=== PATIENT | male | born 1975 | race Caucasian/White ===

== ENCOUNTER 2018-09-28 07:00 | Emergency (ER) | END 2018-09-28 12:00 | disposition home or self-care (01) ==

== ENCOUNTER 2019-03-01 19:37 | Inpatient (IN) | payer MEDICARE, OTHER ==
[~2019-03-01] VITALS: Ht 162.6 cm; Wt 65.0 kg
[~2019-03-01 19:37] MED LIST: CEPH-443 PO; GABA400C14 PO; OMEP20CA16 PO; RIVA10TA PO; SULF1TAB31 PO
[2019-03-01] MEDS ORDERED: SODIUM CHLORIDE 0.9% 1L BAG IV* STA (19:45)
[2019-03-01] MEDS ORDERED: CEFEPIME 2GM/50 ML (PMX) 50 ML IVPB STA (19:45)
[2019-03-01] MEDS ORDERED: VANCOMYCIN 1 GM (PMX) 250 ML IVPB ONE (20:00)
[2019-03-01] MEDS ORDERED: LORAZEPAM 2 MG INJ IV ONE (20:00)
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
[2019-03-01] MEDS ORDERED: ONDANSETRON 4 MG INJ IV PRN (22:30)
[2019-03-01] MEDS ORDERED: ACETAMINOPHEN 325 MG TAB PO PRN ×2 (22:30→23:30)
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
[2019-03-01] MEDS ORDERED: NACL 0.9% 3 ML SYG IV SCH (23:30)
[2019-03-01] MEDS ORDERED: HYDROCODONE/APAP (5/325) TAB PO PRN ×2 (23:30)
[2019-03-01] MEDS: GABAPENTIN 400 MG CAP PO SCH (23:30)
[2019-03-02] MEDS ORDERED: NON-FORMULARY/PATIENT OWN MED (Omeprazole* 20 MG) PO SCH (07:00)
[2019-03-02] MEDS: PANTOPRAZOLE (EC) 40 MG TAB PO SCH (07:00)
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
[2019-03-02] MEDS: GABAPENTIN 400 MG CAP PO SCH ×2 (09:00→20:29)
[2019-03-02] MEDS ORDERED: POTASSIUM CHLORIDE (SR) 20 MEQ TAB PO STA (09:38)
[2019-03-02] MEDS ORDERED: VANCOMYCIN IV PER PHARMACY XX SCH (10:00)
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
[2019-03-02] MEDS: HYDROmorphONE 2 MG/ML SYG IV PRN ×2 (13:14→20:29)
[2019-03-02] MEDS: DIPHENHYDRAMINE 50 MG INJ IV PRN ×2 (13:14→22:09)
[2019-03-02] MEDS: RIVAROXABAN 10 MG TABLET PO SCH (13:14)
[2019-03-02] MEDS: PIPER-TAZO 3.375 GM IV (PMX) 100 ML IVPB SCH ×2 (14:04→20:28)
[2019-03-02 14:30] VITALS: Ht 162.6 cm; Wt 65.0 kg
[2019-03-02] MEDS ORDERED: LORAZEPAM 2 MG INJ IV ONE (15:30)
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
[2019-03-02 20:24] VITALS: BP 105/57; PULSE 100; RESP 20
[2019-03-02] MEDS: VANCOMYCIN 750 MG (PMX) 250 ML IVPB SCH (21:58)
[2019-03-03] MEDS ORDERED: LORAZEPAM 2 MG INJ IV ONE
[2019-03-03] MEDS ORDERED: HALOPERIDOL 5 MG INJ IM ONE
[2019-03-03] MEDS: VANCOMYCIN 750 MG (PMX) 250 ML IVPB SCH ×3 (00:05→15:50)
[2019-03-03] MEDS: PIPER-TAZO 3.375 GM IV (PMX) 100 ML IVPB SCH ×5 (02:46→23:44)
[2019-03-03] MEDS: HYDROmorphONE 2 MG/ML SYG IV PRN ×6 (02:47→23:47)
[2019-03-03] MEDS: PANTOPRAZOLE (EC) 40 MG TAB PO SCH (06:28)
[2019-03-03] MEDS: DIPHENHYDRAMINE 50 MG INJ IV PRN ×3 (07:36→20:29)
[2019-03-03] MEDS: ONDANSETRON 4 MG INJ IV PRN ×2 (07:36→13:52)
[2019-03-03] MEDS: GABAPENTIN 400 MG CAP PO SCH ×2 (07:53→20:30)
[2019-03-03 08:08] VITALS: BP 102/64; PULSE 89; RESP 18
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
[2019-03-03] MEDS: RIVAROXABAN 10 MG TABLET PO SCH (10:54)
[2019-03-03] MEDS: RISPERIDONE 2 MG TAB PO SCH ×2 (12:00→20:30)
[2019-03-03 20:03] VITALS: BP 101/64; PULSE 90; RESP 18
[2019-03-04] MEDS: VANCOMYCIN 750 MG (PMX) 250 ML IVPB SCH ×3 (00:47→16:58)
[2019-03-04 02:34] VITALS: BP 123/67; PULSE 84; RESP 18
[2019-03-04] MEDS: DIPHENHYDRAMINE 50 MG INJ IV PRN ×4 (03:02→20:57)
[2019-03-04] MEDS: HYDROmorphONE 2 MG/ML SYG IV PRN ×7 (03:32→23:34)
[2019-03-04] MEDS: PIPER-TAZO 3.375 GM IV (PMX) 100 ML IVPB SCH ×4 (06:08→23:35)
[2019-03-04] MEDS: PANTOPRAZOLE (EC) 40 MG TAB PO SCH (06:10)
[2019-03-04 08:23] VITALS: BP 114/62; PULSE 88; RESP 16
[2019-03-04] MEDS: RISPERIDONE 2 MG TAB PO SCH ×2 (09:00→20:56)
[2019-03-04] MEDS: GABAPENTIN 400 MG CAP PO SCH ×2 (09:00→20:56)
[2019-03-04] MEDS: RIVAROXABAN 10 MG TABLET PO SCH (09:13)
[2019-03-04] MEDS: DAKINS 0.0125%(1/40) 473 ML SOLUTION TP SCH (12:39)
[2019-03-04 14:42] VITALS: BP 101/62; PULSE 96; RESP 16
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
[2019-03-04 20:00] VITALS: BP 104/70; PULSE 97; RESP 19
[2019-03-04] MEDS ORDERED: POTASSIUM CHLORIDE (SR) 20 MEQ TAB PO ONE (23:00)
[2019-03-05] MEDS: VANCOMYCIN 750 MG (PMX) 250 ML IVPB SCH ×3 (01:27→16:15)
[2019-03-05 02:15] VITALS: BP 108/70; PULSE 93; RESP 17
[2019-03-05] MEDS: DIPHENHYDRAMINE 50 MG INJ IV PRN ×4 (03:02→21:01)
[2019-03-05] MEDS: HYDROmorphONE 2 MG/ML SYG IV PRN ×5 (03:29→20:07)
[2019-03-05] MEDS: PIPER-TAZO 3.375 GM IV (PMX) 100 ML IVPB SCH ×3 (07:38→18:45)
[2019-03-05 07:52] VITALS: BP 110/77; PULSE 102; RESP 21
[2019-03-05] MEDS: RISPERIDONE 2 MG TAB PO SCH ×2 (09:00→21:00)
[2019-03-05] MEDS: GABAPENTIN 400 MG CAP PO SCH ×2 (09:06→20:06)
[2019-03-05] MEDS: RIVAROXABAN 10 MG TABLET PO SCH (09:06)
[2019-03-05] MEDS: PANTOPRAZOLE (EC) 40 MG TAB PO SCH (09:07)
[2019-03-05] MEDS: DAKINS 0.0125%(1/40) 473 ML SOLUTION TP SCH (10:00)
[2019-03-05 14:35] VITALS: BP 116/63; PULSE 80; RESP 20
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
[2019-03-05 19:44] VITALS: BP 117/62; PULSE 82; RESP 20
[2019-03-06] MEDS: HYDROmorphONE 2 MG/ML SYG IV PRN ×7 (00:26→19:59)
[2019-03-06] MEDS: PIPER-TAZO 3.375 GM IV (PMX) 100 ML IVPB SCH ×5 (00:27→23:27)
[2019-03-06] MEDS: VANCOMYCIN 750 MG (PMX) 250 ML IVPB SCH ×3 (01:17→16:07)
[2019-03-06 01:35] VITALS: BP 99/63; PULSE 82; RESP 20
[2019-03-06] MEDS: DIPHENHYDRAMINE 50 MG INJ IV PRN ×4 (02:53→21:01)
[2019-03-06] MEDS: PANTOPRAZOLE (EC) 40 MG TAB PO SCH (06:30)
[2019-03-06 07:42] VITALS: BP 98/64; PULSE 74; RESP 19
[2019-03-06] MEDS: GABAPENTIN 400 MG CAP PO SCH ×2 (08:00→20:06)
[2019-03-06] MEDS: RIVAROXABAN 10 MG TABLET PO SCH (08:00)
[2019-03-06] MEDS: RISPERIDONE 2 MG TAB PO SCH ×2 (08:01→20:09)
[2019-03-06] MEDS: DAKINS 0.0125%(1/40) 473 ML SOLUTION TP SCH (09:54)
[2019-03-06 14:31] VITALS: BP 101/62; RESP 20
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
[2019-03-06 19:38] VITALS: BP 103/64; PULSE 86; RESP 20
[2019-03-07] MEDS: HYDROmorphONE 2 MG/ML SYG IV PRN ×7 (00:15→23:59)
[2019-03-07] MEDS: VANCOMYCIN 750 MG (PMX) 250 ML IVPB SCH ×4 (00:19→23:59)
[2019-03-07 01:45] VITALS: BP 109/67; PULSE 79; RESP 20
[2019-03-07] MEDS: DIPHENHYDRAMINE 50 MG INJ IV PRN ×4 (03:03→21:35)
[2019-03-07] MEDS: PIPER-TAZO 3.375 GM IV (PMX) 100 ML IVPB SCH ×2 (06:09→12:06)
[2019-03-07] MEDS: PANTOPRAZOLE (EC) 40 MG TAB PO SCH (06:09)
[2019-03-07] MEDS: RIVAROXABAN 10 MG TABLET PO SCH (08:08)
[2019-03-07] MEDS: GABAPENTIN 400 MG CAP PO SCH ×2 (08:08→20:10)
[2019-03-07] MEDS: DAKINS 0.0125%(1/40) 473 ML SOLUTION TP SCH (08:18)
[2019-03-07 08:23] VITALS: BP 118/83; PULSE 87; RESP 18
[2019-03-07] MEDS: RISPERIDONE 2 MG TAB PO SCH ×2 (09:00→20:11)
[2019-03-07] MEDS ORDERED: HYDROmorphONE 1 MG/ML SYG IV STA (14:52)
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
[2019-03-07] MEDS ORDERED: AMIKACIN IV PER PHARMACY XX SCH (15:00)
[2019-03-07] MEDS: AMIKACIN 900 MG in SOD CHLORIDE 0.9% 100 ML IVPB SCH (18:11)
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
[2019-03-07 19:47] VITALS: BP 112/74; PULSE 95; RESP 17
[2019-03-08 02:00] VITALS: BP 101/64; PULSE 87; RESP 19
[2019-03-08] MEDS: DIPHENHYDRAMINE 50 MG INJ IV PRN ×4 (03:32→21:42)
[2019-03-08] MEDS: HYDROmorphONE 2 MG/ML SYG IV PRN ×5 (04:00→21:37)
[2019-03-08] MEDS: PANTOPRAZOLE (EC) 40 MG TAB PO SCH (06:18)
--- NOTE | 2019-03-08 07:41 | CONS ---
Assessment/Plan Assessment/Plan Assessment/Plan (Daily) Huge ulcer plantar aspect left foot Cellulitis Probable osteomyelitis Rest of angry personality demanding Probable delusional condition Drug-seeking Curative treatment for pain control no pain management patient is discharged in the hospital high risk of overdose being a drinker possible other opioids or street drugs. Also patient is noncompliant with follow-up and has been admitted or seen through multiple emergency room some 80 times per review of CURES. 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 I doubt he will take any anxiolytics but I will try low-dose of A tivan to calm him down. Atypical antipsychotic medications Patient continues to receive wound management pain is controlled he has become less verbally abusive of held up any atypical antipsychotic medications for now . Consultation Date/Type/Reason Admit Date/Time Mar 01, 2019 at 22:08 Date/Time of Note DATE: 03/08/19 TIME: 07:39 Past Medical History Home Meds Reported Medications Gabapentin* (Gabapentin*) 400 Mg Capsule, 400 MG PO BID, #90 CAP 09/28/18 Omeprazole* (Omeprazole*) 20 Mg Capsule.dr, 20 MG PO AC BREAKFAST, #30 CAP 09/28/18 Rivaroxaban* (Xarelto*) 10 Mg Tablet, 10 MG PO DAILY, TAB 09/28/18 Discontinued Scripts Cephalexin* (Keflex*) 500 Mg Capsule, 500 MG PO QID for 7 Days, CAP Prov:MARTIN LOPES MD 09/28/18 Sulfamethoxazole/Trimethoprim* (Bactrim Ds* Tablet) 1 Each Tablet, 1 TAB PO BID, #14 TAB Prov:MARTIN LOPES MD 09/28/18 Medications Current Medications IV Flush (NS 3 ml) 3 ml PER PROTOCOL IV ; Start 03/01/19 at 23:30 Ondansetron HCl (Zofran Inj) 4 mg Q6H PRN IV NAUSEA/VOMITING Last administered on 03/03/19at 13:52; Admin Dose 4 MG; Start 03/01/19 at 23:30 Acetaminophen (Tylenol Tab) 650 mg Q6H PRN PO .PAIN 1-3 OR TEMP; Start 03/01/19 at 23:30 Gabapentin (Neurontin) 400 mg BID PO Last administered on 03/07/19 20:10; Admin Dose 400 MG; Start 03/01/19 at 23:30 Rivaroxaban (Xarelto) 10 mg DAILY PO Last administered on 03/07/19 08:08; Admin Dose 10 MG; Start 03/02/19 at 09:00 Pantoprazole (Protonix Tab) 40 mg AC BREAKFAST PO Last administered on 03/07/19 06:09; Admin Dose 40 MG; Start 03/02/19 at 07:00 Hydromorphone HCl (Dilaudid) 2 mg Q4 PRN IV SEVERE PAIN LEVEL 7-10 Last administered on 03/08/19 04:00; Admin Dose 2 MG; Start 03/02/19 at 09:00 Diphenhydramine HCl (Benadryl) 25 mg Q6 PRN IV COUGH Last administered on 03/08/19 03:32; Admin Dose 25 MG; Start 03/02/19 at 09:00 Vancomycin HCl (Vanco Iv Per Pharmacy) VANCOMYCIN PER PHARMACY PER PROTOCOL XX ; Start 03/02/19 at 10:00 Vancomycin/Sodium Chloride 250 ml @ 125 mls/hr Q8H IVPB Last administered on 03/07/19 23:59; Admin Dose 125 MLS/HR; Start 03/02/19 at 16:00 Risperidone (Risperdal) 2 mg BID PO Last administered on 03/04/19 20:56; Admin Dose 2 MG; Start 03/03/19 at 12:00 Sodium Hypochlorite (Dakins Diluted (1/40)) 1 applic DAILY TP Last administered on 03/07/19 08:18; Admin Dose 1 APPLIC; Start 03/04/19 at 09:00 Amikacin Sulfate (Amikacin Iv Per Pharmacy) AMIKACIN PER PHARMACY NOTE XX ; Start 03/07/19 at 15:00 Amikacin Sulfate 900 mg/Sodium Chloride 103.6 ml @ 102 mls/hr Q24H IVPB Last administered on 03/07/19 18:11; Admin Dose 102 MLS/HR; Start 03/07/19 at 18:00 Allergies: Coded Allergies: prochlorperazine (Unverified Allergy, Mild, 03/01/19) Past Surgical History Past Surgical Hx: other (Multiple debridement) Social History Alcohol Use: occasionally Smoking Status: Current every day smoker Exam/Review of Systems Exam Vitals Vital Signs Date Temp Pulse Resp B/P (MAP) Pulse Ox O2 O2 Flow FiO2 Time Delivery Rate 03/08/19 98.4 87 19 101/64 97 02:00 (76) 03/05/19 Room Air 19:44 Intake and Output 03/07/19 03/07/19 03/08/19 1515:00 23:00 07:00 IntakeIntake Total 350 ml 250 ml 353.6 ml OutputOutput Total 1500 ml BalanceBalance 350 ml -1250 ml 353.6 ml Constitutional: alert, other (Confabulating) Psych: confusion Neurological: HOISTING ENGINEER II-XII intact, nl mental status, nl speech, nl strength, other (Telling everyone that he is a member of the [employer] accommodate his name is Martin Mehta) Results Result Diagram: 03/07/19 0612 Medications Medication Current Medications IV Flush (NS 3 ml) 3 ml PER PROTOCOL IV ; Start 03/01/19 at 23:30 Ondansetron HCl (Zofran Inj) 4 mg Q6H PRN IV NAUSEA/VOMITING Last administered on 03/03/19at 13:52; Admin Dose 4 MG; Start 03/01/19 at 23:30 Acetaminophen (Tylenol Tab) 650 mg Q6H PRN PO .PAIN 1-3 OR TEMP; Start 03/01/19 at 23:30 Gabapentin (Neurontin) 400 mg BID PO Last administered on 03/07/19at 20:10; Admin Dose 400 MG; Start 03/01/19 at 23:30 Rivaroxaban (Xarelto) 10 mg DAILY PO Last administered on 03/07/19at 08:08; Admin Dose 10 MG; Start 03/02/19 at 09:00 Pantoprazole (Protonix Tab) 40 mg AC BREAKFAST PO Last administered on 03/07/19at 06:09; Admin Dose 40 MG; Start 03/02/19 at 07:00 Hydromorphone HCl (Dilaudid) 2 mg Q4 PRN IV SEVERE PAIN LEVEL 7-10 Last administered on 03/08/19at 04:00; Admin Dose 2 MG; Start 03/02/19 at 09:00 Diphenhydramine HCl (Benadryl) 25 mg Q6 PRN IV COUGH Last administered on 03/08/19at 03:32; Admin Dose 25 MG; Start 03/02/19 at 09:00 Vancomycin HCl (Vanco Iv Per Pharmacy) VANCOMYCIN PER PHARMACY PER PROTOCOL XX ; Start 03/02/19 at 10:00 Vancomycin/Sodium Chloride 250 ml @ 125 mls/hr Q8H IVPB Last administered on 03/07/19at 23:59; Admin Dose 125 MLS/HR; Start 03/02/19 at 16:00 Risperidone (Risperdal) 2 mg BID PO Last administered on 03/04/19at 20:56; Admin Dose 2 MG; Start 03/03/19 at 12:00 Sodium Hypochlorite (Dakins Diluted ()) 1 applic DAILY TP Last administered on 03/07/19at 08:18; Admin Dose 1 APPLIC; Start 03/04/19 at 09:00 Amikacin Sulfate (Amikacin Iv Per Pharmacy) AMIKACIN PER PHARMACY NOTE XX ; Start 03/07/19 at 15:00 Amikacin Sulfate 900 mg/Sodium Chloride 103.6 ml @ 102 mls/hr Q24H IVPB Last administered on 03/07/19at 18:11; Admin Dose 102 MLS/HR; Start 03/07/19 at 18:00 KIKI NUR Mar 08, 2019 07:41
[2019-03-08 08:00] VITALS: BP 126/76; PULSE 84; RESP 18
[2019-03-08] MEDS: VANCOMYCIN 750 MG (PMX) 250 ML IVPB SCH ×3 (08:00→15:51)
[2019-03-08] MEDS: RIVAROXABAN 10 MG TABLET PO SCH (08:02)
[2019-03-08] MEDS: GABAPENTIN 400 MG CAP PO SCH ×2 (08:02→21:33)
[2019-03-08] MEDS: QUETIAPINE 25 MG TAB PO SCH ×2 (09:00→21:33)
[2019-03-08] MEDS: DAKINS 0.0125%(1/40) 473 ML SOLUTION TP SCH (09:34)
[2019-03-08] MEDS ORDERED: LIDOCAINE 1% (MPF) 5 ML VIAL SC ONE ×2 (11:00→12:00)
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
[2019-03-08] MEDS: AMIKACIN 900 MG in SOD CHLORIDE 0.9% 100 ML IVPB SCH (18:00)
[2019-03-08 20:07] VITALS: BP 119/68; PULSE 93; RESP 19
[2019-03-08] MEDS ORDERED: VANCOMYCIN 750 MG (PMX) 250 ML IVPB SCH (21:00)
[2019-03-08] MEDS: VANCOMYCIN HCL 1.25 GM in SOD CHLORIDE 0.9% 250 ML IVPB SCH (21:37)
[2019-03-09] MEDS: HYDROmorphONE 2 MG/ML SYG IV PRN ×4 (01:26→13:29)
[2019-03-09 02:00] VITALS: BP 105/63; PULSE 82; RESP 17
[2019-03-09] MEDS: DIPHENHYDRAMINE 50 MG INJ IV PRN ×3 (03:44→15:24)
[2019-03-09] MEDS: PANTOPRAZOLE (EC) 40 MG TAB PO SCH (07:00)
[2019-03-09] MEDS: DAKINS 0.0125%(1/40) 473 ML SOLUTION TP SCH (09:00)
[2019-03-09] MEDS: QUETIAPINE 25 MG TAB PO SCH (09:00)
[2019-03-09] MEDS: GABAPENTIN 400 MG CAP PO SCH (09:30)
[2019-03-09] MEDS: VANCOMYCIN HCL 1.25 GM in SOD CHLORIDE 0.9% 250 ML IVPB SCH (09:30)
[2019-03-09] MEDS: RIVAROXABAN 10 MG TABLET PO SCH (09:30)
[2019-03-09] MEDS ORDERED: AMIKACIN 900 MG in SOD CHLORIDE 0.9% 250 ML IVPB SCH ×2 (12:48→18:00)
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
== END 2019-03-09 16:30 | DRG 503 ==
LOC: E/R 19:37 → 5EC 22:08 → EDBEDREQ 03-02 04:57 → EDBEDREQTM 03-02 04:57
PROVIDERS: ADMIT Internal Medicine; ATTEND Internal Medicine
PROC: 0QBM0ZZ Excision of Left Tarsal, Open Approach (ICD-10-PCS; principal; 2019-03-07)
PROC: 05HY33Z Insertion of Infusion Device into Upper Vein, Percutaneous Approach (ICD-10-PCS; 2019-03-08)
DX: M86.8X7 Other osteomyelitis, ankle and foot (principal); L89.624 Pressure ulcer of left heel, stage 4; G82.20 Paraplegia, unspecified; L89.612 Pressure ulcer of right heel, stage 2; F20.9 Schizophrenia, unspecified; D50.9 Iron deficiency anemia, unspecified; E87.6 Hypokalemia; F29 Unspecified psychosis not due to a substance or known physiological condition; Z72.0 Tobacco use; M19.90 Unspecified osteoarthritis, unspecified site; M85.80 Other specified disorders of bone density and structure, unspecified site; D63.8 Anemia in other chronic diseases classified elsewhere
CPT/HCPCS: 36415; 76937; 80048; 80053; 80061; 80150; 80202; 82270; 82565; 82728; 83036; 83540; 83605; 83735; 84100; 84520; 85025; 85610; 85651; 85730; 86140; 87070; 93005; 96374; 96375; J0278; J0692; J1170; J1200; J2060; J2405; J2543; J3370; J7030; J7050

== ENCOUNTER 2019-03-17 07:04 | Emergency (ER) | payer MEDICARE, OTHER ==
[~2019-03-17] VITALS: Ht 170.2 cm; Wt 65.0 kg
[~2019-03-17 07:04] MED LIST changes: -CEPH-443 PO; -SULF1TAB31 PO
[2019-03-17 07:18] VITALS: BP 111/65; PULSE 70; RESP 16; Ht 170.2 cm; Wt 65.0 kg
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
--- NOTE | 2019-03-17 11:12 | QN ---
Documentation Comment Patient is a 43-year-old male known to the interviewer from previous admis angelo.on a [id number] evaluation, patient's is awake however he is very uncooperative with interview and is currently selectively mute. Unable to proceed with the interview because patient refused to answer questions SUZANNE MAZARIEGOS NP Mar 17, 2019 11:12
== END 2019-03-17 17:07 | disposition home or self-care (01) ==
LOC: MERGE 07:04 → E/R 07:04
DX: M79.672 Pain in left foot (principal); Z76.5 Malingerer [conscious simulation]
CPT/HCPCS: 99283

== ENCOUNTER 2019-03-17 18:53 | Emergency (ER) | payer MEDICARE, OTHER ==
[~2019-03-17] VITALS: Ht 172.7 cm; Wt 68.0 kg
[2019-03-17 18:53] VITALS: BP 144/77; PULSE 103; RESP 24; Ht 172.7 cm; Wt 68.0 kg
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
== END 2019-03-17 19:00 | disposition home or self-care (01) ==
LOC: E/R 18:53
DX: Z76.5 Malingerer [conscious simulation] (principal); Z87.891 Personal history of nicotine dependence
CPT/HCPCS: 99283

== ENCOUNTER 2019-06-19 22:28 | Emergency (ER) | payer MEDICARE, OTHER ==
[~2019-06-19] VITALS: Ht 188 cm; Wt 105.0 kg
[2019-06-19 22:32] VITALS: BP 154/95; PULSE 75; RESP 18; Ht 188 cm; Wt 105.0 kg
[2019-06-20] MEDS ORDERED: KETOROLAC 30 MG INJ IM STA (00:04)
== END 2019-06-20 00:50 | disposition left against medical advice (07) ==
LOC: FTE 22:28
DX: Z53.21 Procedure and treatment not carried out due to patient leaving prior to being seen by health care provider (principal)
CPT/HCPCS: J1885